=== PATIENT | female | born 1930 | race Asian ===

== ENCOUNTER 2017-11-12 16:28 | Inpatient (IN) | payer MEDICARE, OTHER ==
[~2017-11-12] VITALS: Ht 162.6 cm; Wt 62.2 kg
[~2017-11-12 16:28] MED LIST: ACET-868 PO; CALC1TAB99 PO; CEPH-570 PO; DEXT1CAP3 PO; FLUT1DIS3 IH; FURO40TA5 PO; LORA-258 PO; LOSA50TA21 PO; MEMA10TA PO; POTA20TA34 PO; TIOT18CA3 IH
--- NOTE | 2017-11-12 16:35 | NUR ---
[id number] FROM [facility]: SOB, LOW O2 SAT x 1 DAY. PATIENT IS A/OX 1, BREATHING EVEN, TACHYPNIC. ARRIVED ON 15L OXYGEN VIA NON REBREATHER MASK. PLACED INTO BED, MONITOR ATTACHED. SAFETY AND COMFORT MEASURES IN PLACE. MD AT BEDSIDE FOR EVAL.
[2017-11-12] MEDS ORDERED: IPRATROPIUM NEB FS 0.5 MG/2.5 ML AMPUL.NEB ONE (16:44)
[2017-11-12] MEDS ORDERED: ALBUTEROL FS 2.5 MG/3 ML VIAL.NEB ONE (16:44)
--- NOTE | 2017-11-12 16:44 | NUR ---
NEW IV STARTED ON LEFT HAND, 20G.
--- NOTE | 2017-11-12 16:45 | NUR ---
PT UNABLE TO PROVIDE URINE AT THIS TIME VERBAL ORDER DR GREENFIELD IN AND OUT CATH FOR NO URINE
[2017-11-12] MEDS ORDERED: methylPREDNISolone SOD SUCC 125 MG/2ML VIAL ONE (16:47)
--- NOTE | 2017-11-12 16:49 | NUR ---
OFFICE ELECTRICIAN AT BEDSIDE FOR BLOOD DRAW.
[2017-11-12 16:53] LABS: BASOPHILS # (AUTO) 0.1 /CMM (0.0-0.2); EOSINOPHILS % (AUTO) 5.1 % (0.0-6.0); HEMATOCRIT 42 % (33-45); HEMOGLOBIN 13.5 g/dL (11.5-14.8); LYMPHOCYTES # (AUTO) 1.7 /CMM (0.8-4.8); LYMPHOCYTES % (AUTO) 46.4 % (20.0-44.0); MEAN CORPUSCULAR HGB CONC 32 g/dl (31.0-36.0); MEAN CORPUSCULAR VOLUME 86 fL (82-100); MONOCYTES # (AUTO) 0.3 /CMM (0.1-1.30); MONOCYTES % (AUTO) 8.4 % (2.0-12.0); NEUTROPHILS # (AUTO) 1.5 /CMM (1.8-8.9); NEUTROPHILS % (AUTO) 38.1 % (43.0-81.0); PLATELET COUNT (AUTO) 193 /CMM (150-450); RDW COEFFICIENT OF VARIATION 14.6 (11.5-15.0); RED BLOOD CELL COUNT(AUTO) 4.93 MIL/uL (4.0-5.2); WHITE BLOOD COUNT (AUTO) 3.8 K/uL (4.3-11.0)
--- NOTE | 2017-11-12 16:56 | NUR ---
firestopper technician at bedside
[2017-11-12] MEDS ORDERED: IPRATROPIUM NEB FS 0.5 MG/2.5 ML AMPUL.NEB NEB ONE (17:00)
[2017-11-12] MEDS ORDERED: methylPREDNISolone SOD SUCC 125 MG/2ML VIAL IV ONE (17:00)
[2017-11-12] MEDS ORDERED: ALBUTEROL FS 2.5 MG/3 ML VIAL.NEB CONTNEB ONE (17:00)
[2017-11-12 17:02] LABS: CALCIUM, SERUM 8.6 mg/dL (8.5-10.1); CARBON DIOXIDE 32 mmol/L (21-32); CHLORIDE 110 mmol/L (98-107); CREATININE 0.8 mg/dL (0.6-1.3); GLUCOSE 85 mg/dL (74-106); POTASSIUM 4.5 mmol/L (3.5-5.1); SODIUM SERUM 145 mmol/L (136-145); UREA NITROGEN, BLOOD 19 mg/dL (7-18)
[2017-11-12] MEDS ORDERED: ASPIRIN 300 MG/SUPP.RECT RC ONE (17:04)
[2017-11-12 17:05] LABS: INR 1.61 (0.85-1.15)
[2017-11-12 17:08] LABS: ALANINE AMINOTRANSFERASE 28 U/L (12-78); ALBUMIN 2.7 g/dL (3.4-5.0); ALKALINE PHOSPHATASE 52 U/L (46-116); ASPARTATE AMINOTRANSFERASE 29 U/L (15-37); BILIRUBIN,DIRECT 0.2 mg/dL (0.0-0.2); BILIRUBIN,TOTAL 0.3 mg/dL (0.2-1.0); TOTAL PROTEIN, SERUM 7.2 g/dL (6.4-8.2)
[2017-11-12 17:10] LABS: TROPONIN I 0.024 ng/mL (0.00-0.056)
[2017-11-12] MEDS ORDERED: HEPARIN SODIUM, PORCINE 5000 UNITS/1 ML VIAL ONE (17:26)
[2017-11-12] MEDS ORDERED: HEPARIN-LOCK FLUSH PORCINE PF 100 UNITS/1 ML (10 ML)DISP.SYRIN IVF ONE (17:30)
--- NOTE | 2017-11-12 18:02 | NUR ---
CALLED [employer] SERVICE PLANNER WAS PAGED.
--- NOTE | 2017-11-12 18:11 | NUR ---
PAGED DR MCNAIR FOR CONSULT.
[2017-11-12 18:19] LABS: APPEARANCE,URINE SL CLOUDY (CLEAR); BILIRUBIN,URINE NEGATIVE (NEGATIVE); BLOOD, URINE 1+ Ery/uL (NEGATIVE); COLOR,URINE YELLOW (YELLOW); KETONES,URINE NEGATIVE (NEGATIVE); LEUKOCYTE ESTERASE ,URINE 1+ (NEGATIVE); NITRITE, URINE NEGATIVE (NEGATIVE); PH,URINE 5.5 (5.0-8.0); PROTEIN,URINE NEGATIVE (NEGATIVE); UGLUCOSE NEGATIVE (NEGATIVE); UROBILINOGEN,URINE 0.2 EU/dL (0.2)
[2017-11-12 18:32] LABS: BACTERIA,URINE 1+ /HPF (None Seen)
--- NOTE | 2017-11-12 18:49 | NUR ---
GAVE REPORT TO CALLIE HART TELE DR ARNOLD ADMITTING . ACUTE RESP FAILURE
[2017-11-12 19:00] VITALS: BP 67/35
[2017-11-12] MEDS ORDERED: LORAZEPAM 0.5 MG TABLET PO PRN (19:00)
[2017-11-12] MEDS: ASPIRIN 81 MG TAB.CHEW PO SCH (19:00)
[2017-11-12] MEDS ORDERED: MAGNESIUM HYDROXIDE 30 ML UDC PO PRN (19:00)
[2017-11-12] MEDS ORDERED: ZOLPIDEM TARTRATE 5 MG TABLET PO PRN (19:00)
[2017-11-12] MEDS ORDERED: HYDROCODONE/APAP 5/325MG 1 EACH TABLET PO PRN (19:00)
[2017-11-12] MEDS ORDERED: Z GUARD REMEDY 2 OZ OINT TP PRN (19:00)
[2017-11-12] MEDS ORDERED: MORPHINE SULFATE INJ 2 MG/ML DISP.SYRIN IV PRN (19:00)
[2017-11-12] MEDS ORDERED: MAG HYDROX/AL HYDROX/SIMETH 30 ML UDC PO PRN (19:00)
[2017-11-12] MEDS ORDERED: ONDANSETRON HCL/PF 4 MG/2 ML VIAL IVP PRN (19:00)
[2017-11-12] MEDS ORDERED: ACETAMINOPHEN 325 MG TABLET PO PRN (19:00)
--- NOTE | 2017-11-12 19:00 | NUR ---
ASSISTANT PROFESSOR OF MUSIC NOTE RECEIVED PATIENT AWAKE VIA [facility] FROM ER. NO RESPIRATORY DISTRESS AT THIS TIME. PATIENT NON-VERBAL. UNABLE TO MAKE NEEDS KNOWN. IV SITE INTACT, WITH NO REDNESS OR INFILTRATION NOTED. EDMON[facility] CATHETER IN PLACE, DRAINING CLEAR YELLOW URINE TO COLLECTION BAG. ALL BELONGINGS CHECKED AND ACCOUNTED FOR. BED LOCKED AND IN LOWEST POSITION. SIDE RAILS UP, CALL LIGHT WITHIN REACH. WILL CONTINUE TO MONITOR.
[2017-11-12] MEDS ORDERED: CEFTRIAXONE 1 G VIAL ONE (20:25)
[2017-11-12] MEDS: CEFTRIAXONE 1 G in IV D5W 50 ML IV SCH (20:33)
[2017-11-12] MEDS: ENOXAPARIN SODIUM 40 MG/0.4 ML DISP.SYRIN SQ SCH (20:36)
[2017-11-12] MEDS ORDERED: FLUTICASONE/SALMETEROL DISKUS IH SCH (21:00)
[2017-11-12] MEDS ORDERED: ATORVASTATIN 40 MG TABLET PO SCH (22:00)
[2017-11-13 03:47] LABS: BASOPHILS % (AUTO) 0.3 % (0.0-2.0); HEMATOCRIT 38 % (33-45); HEMOGLOBIN 12.4 g/dL (11.5-14.8); LYMPHOCYTES # (AUTO) 0.6 /CMM (0.8-4.8); LYMPHOCYTES % (AUTO) 16.7 % (20.0-44.0); MEAN CORPUSCULAR HGB CONC 32 g/dl (31.0-36.0); MEAN CORPUSCULAR VOLUME 86 fL (82-100); MONOCYTES % (AUTO) 0.8 % (2.0-12.0); NEUTROPHILS # (AUTO) 2.8 /CMM (1.8-8.9); NEUTROPHILS % (AUTO) 82.2 % (43.0-81.0); PLATELET COUNT (AUTO) 196 /CMM (150-450); RDW COEFFICIENT OF VARIATION 15.4 (11.5-15.0); RED BLOOD CELL COUNT(AUTO) 4.46 MIL/uL (4.0-5.2); WHITE BLOOD COUNT (AUTO) 3.4 K/uL (4.3-11.0)
[2017-11-13 04:05] LABS: CALCIUM, SERUM 9.2 mg/dL (8.5-10.1); CARBON DIOXIDE 31 mmol/L (21-32); CHLORIDE 108 mmol/L (98-107); CREATININE 1.6 mg/dL (0.6-1.3); GLUCOSE 152 mg/dL (74-106); MAGNESIUM 2.8 mg/dL (1.8-2.4); PHOSPHORUS 4.1 mg/dL (2.5-4.9); POTASSIUM 5.2 mmol/L (3.5-5.1); SODIUM SERUM 144 mmol/L (136-145); UREA NITROGEN, BLOOD 28 mg/dL (7-18)
[2017-11-13 04:09] LABS: IRON, SERUM 30 ug/dl (50-175); TOTAL IRON BINDING CAPACITY 218 ug/dl (250-450)
[2017-11-13 04:16] LABS: CHOLESTEROL 124 mg/dL (<200); HDL CHOLESTEROL 46 mg/dL (40-60); LDL 71 mg/dL (0-99); TRIGLYCERIDES 58 mg/dL (30-150)
--- NOTE | 2017-11-13 05:58 | NUR ---
SULFATE DRIER MACHINE OPERATOR NOTE PATIENT STABLE. FAMILY MEMBER AT BEDSIDE. NO DISTRESS NOTED. ALL NEEDS MET AND ATTENDED TO. WILL ENDORSE TO DAY SHIFT FOR MAGALI.
--- NOTE | 2017-11-13 07:10 | NUR ---
RN NOTES: PATIENT AROUSABLE TO TOUCH. PATIENT AOX1, NONVERBAL AT THE MOMENT. NO FACIAL GRIMACING NOTED. NONLABORED BREATHING NOTED ON 3 L. IV SITE ON LEFT WRIST PATENT AND INTACT. BED IN LOWEST LOCKED POSITION. CALL LIGHT WITHIN REACH. PATIENT SR WITH BB ON TELE MONITOR
[2017-11-13] MEDS: IV NS 0.9% 1,000 ML IV PRN ×2 (08:40→16:15)
[2017-11-13] MEDS ORDERED: FUROSEMIDE 40 MG TABLET PO SCH (09:00)
[2017-11-13] MEDS ORDERED: LOSARTAN POTASSIUM 50 MG TABLET PO SCH (09:00)
[2017-11-13] MEDS: ASPIRIN 81 MG TAB.CHEW PO SCH (09:04)
[2017-11-13] MEDS: IPRATROPIUM NEB FS 0.5 MG/2.5 ML AMPUL.NEB NEB SCH ×2 (09:42→14:32)
[2017-11-13] MEDS: FLUTICASONE/VILANTEROL 1 EACH BLST.W.DEV IH SCH (12:00)
--- NOTE | 2017-11-13 12:00 | NUR ---
RN NOTES: PATIENT UNABLE TO RETURN DEMONSTRATION WITH BREO INHALER. ATTEMPTED MULTIPLE TIMES. BENEFITS AND RISKS EXPLAINED TO PATIENT WELL SON. PATIENT ALSO REFUSING BREAKFAST. OFFERED MULTIPLE TIMES BY CROSSCUTTER AND MYSELF
[2017-11-13 16:00] VITALS: BP 103/60
--- NOTE | 2017-11-13 18:37 | NUR ---
RN NOTES: PATIENT RESTING IN BED. AROUSABLE TO TOUCH AND NAME. PATIENT VERBAL, SLOVENIAN SPEAKING. IV SITE ON RIGHT HAND GAUGE 22 PATENT AND INTACT WITH FLUIDS RUNNING PER ORDERS. PATIENT KEPT CLEAN THROUGHOUT SHIFT. TURNED AND REPOSITIONED EVERY 2 HOURS. PATIENT TOLERATING PUREED DIET WELL. CONSUMED ABOUT 25% WELL 30% OF DINNER. NO NAUSEA AND NO VOMITING. MR TREJO SPOKE TO HOSPICE AGENCY. AWAITING VERIFICATION FROM HOSPICE AGENCY. NO FACIAL GRIMACING THROUGHOUT SHIFT. PATIENT SUCTIONED NEEDED. NO SIGNS OF ASPIRATION. WILL ENDORCE TO NEXT SHIFT
--- NOTE | 2017-11-13 19:30 | NUR ---
MS RN NOTE RECEIVED PATIENT ASLEEP IN BED. ABLE TO AROUSE BY NAME. RECEIVING 2L OXYGEN VIA NASAL CANNULA. NO RESPIRATORY DISTRESS NOTED. NO S/S OF PAIN OR DISCOMFORT NOTED. IV SITE INTACT, WITH FLUIDS RUNNING ORDERED. EDMON[facility] CATHETER IN PLACE, DRAINING DARK YELLOW URINE INTO COLLECTION BAG. BED LOCKED AND IN LOWEST POSITION. SIDE RAILS UP, CALL LIGHT WITHIN REACH. WILL CONTINUE TO MONITOR.
[2017-11-13 20:15] VITALS: BP 90/51
[2017-11-13] MEDS: CEFTRIAXONE 1 G in IV D5W 50 ML IV SCH (21:13)
[2017-11-13] MEDS: ENOXAPARIN SODIUM 40 MG/0.4 ML DISP.SYRIN SQ SCH (21:16)
[2017-11-13 22:00] VITALS: BP 90/51
[2017-11-14] MEDS: IPRATROPIUM NEB FS 0.5 MG/2.5 ML AMPUL.NEB NEB SCH ×3 (00:13→14:56)
[2017-11-14 06:36] LABS: BASOPHILS # (AUTO) 0.1 /CMM (0.0-0.2); BASOPHILS % (AUTO) 1.1 % (0.0-2.0); EOSINOPHILS % (AUTO) 0.6 % (0.0-6.0); HEMATOCRIT 36 % (33-45); HEMOGLOBIN 11.7 g/dL (11.5-14.8); LYMPHOCYTES # (AUTO) 1.9 /CMM (0.8-4.8); LYMPHOCYTES % (AUTO) 36.7 % (20.0-44.0); MEAN CORPUSCULAR HGB CONC 33 g/dl (31.0-36.0); MEAN CORPUSCULAR VOLUME 89 fL (82-100); MONOCYTES # (AUTO) 0.3 /CMM (0.1-1.30); MONOCYTES % (AUTO) 6.6 % (2.0-12.0); NEUTROPHILS # (AUTO) 2.8 /CMM (1.8-8.9); PLATELET COUNT (AUTO) 156 /CMM (150-450); RDW COEFFICIENT OF VARIATION 15.6 (11.5-15.0); RED BLOOD CELL COUNT(AUTO) 4.03 MIL/uL (4.0-5.2); WHITE BLOOD COUNT (AUTO) 5.1 K/uL (4.3-11.0)
--- NOTE | 2017-11-14 06:51 | NUR ---
ms rn note Patient stable. All needs met and attended to. Will endorse to day shift.
[2017-11-14 07:28] LABS: CALCIUM, SERUM 8.6 mg/dL (8.5-10.1); CARBON DIOXIDE 30 mmol/L (21-32); CHLORIDE 110 mmol/L (98-107); CREATININE 0.9 mg/dL (0.6-1.3); GLUCOSE 88 mg/dL (74-106); PHOSPHORUS 3.1 mg/dL (2.5-4.9); POTASSIUM 4.5 mmol/L (3.5-5.1); SODIUM SERUM 145 mmol/L (136-145); UREA NITROGEN, BLOOD 32 mg/dL (7-18)
[2017-11-14 08:00] VITALS: BP 119/44
--- NOTE | 2017-11-14 08:00 | NUR ---
MS RN OPENING NOTES. RECEIVED PATIENT IN BED, AWAKE, ALERT X1 , EASILY AROUSABLE, RESPIRATIONS EVEN AND UNLABORED, NO FACIAL GRIMACING NOTED , NO DISCOMFORT NOTED. IV TO LEFT WRIST 20GUAGE INTACT AND PATENT, NO REDNESS NO INFILTRATION NOTES, IVF RUNNING PROPERLY. EDMONDS CATHETER INTACT AND DRAINING WELL. SAFETY MEASURES WITHIN REACH . CALL LIGHT KEPT WITHIN REACH WILL CONTINUE TO MONITOR.
[2017-11-14] MEDS: ASPIRIN 81 MG TAB.CHEW PO SCH (09:04)
[2017-11-14] MEDS: FLUTICASONE/VILANTEROL 1 EACH BLST.W.DEV IH SCH (09:10)
[2017-11-14] MEDS: IV NS 0.9% 1,000 ML IV PRN ×2 (14:44→16:34)
[2017-11-14 16:00] VITALS: BP 110/57
--- NOTE | 2017-11-14 19:10 | NUR ---
MS RN OPENING NOTE RECEIVED PATIENT IN BED, SLEEPING, AROUSED EASILY WITH VERBAL STIMULI, DISORIENTED. RESPIRATIONS EVEN AND UNLABORED, IN NO APPARENT DISTRESS OR DISCOMFORT AT THIS TIME. PATIENT ON 2L O2 VIA NC TOLERATING WELL. PATIENT WITH EDMONDS CATHETER, INTACT DRAINING WELL CLEAR AND YELLOW URINE. L WRIST IV SITE 22G WITH FLUIDS RUNNING AT 75ML/HR. NO SIGNS OF INFILTRATION OR INFECTION. PATIENT KEPT CLEAN AND COMFORTABLE. SAFETY MEASURES IN PLACE, BED IN LOW LOCKED POSITION, SIDE RAILS UP X2, CALL LIGHT WITHIN EASY REACH, WILL CONTINUE TO MONITOR.
--- NOTE | 2017-11-14 19:26 | NUR ---
RN OPENING NOTES. PATIENT IN BED, AWAKE, ALERT X1 , EASILY AROUSABLE, RESPIRATIONS EVEN AND UNLABORED, NO FACIAL GRIMACING NOTED , NO DISCOMFORT NOTED. IV TO LEFT WRIST 22GUAGE INTACT AND PATENT, NO REDNESS NO INFILTRATION NOTES, IVF RUNNING PROPERLY ORDERED. EDMONDS CATHETER INTACT AND DRAINING WELL. SAFETY MEASURES WITHIN REACH . CALL LIGHT KEPT WITHIN REACH. Addendum: 11/14/17 at 1931 by GHADA BROOKE RN MS CLOSING NOTES
[2017-11-14 20:00] VITALS: BP 112/65
[2017-11-14] MEDS: CEFTRIAXONE 1 G in IV D5W 50 ML IV SCH (20:38)
[2017-11-14] MEDS: ENOXAPARIN SODIUM 40 MG/0.4 ML DISP.SYRIN SQ SCH (20:42)
[2017-11-15] MEDS: IPRATROPIUM NEB FS 0.5 MG/2.5 ML AMPUL.NEB NEB SCH ×4 (00:08→23:04)
[2017-11-15 06:45] LABS: BASOPHILS % (AUTO) 0.8 % (0.0-2.0); EOSINOPHILS % (AUTO) 4.4 % (0.0-6.0); HEMATOCRIT 34 % (33-45); HEMOGLOBIN 11.2 g/dL (11.5-14.8); LYMPHOCYTES % (AUTO) 55.9 % (20.0-44.0); MEAN CORPUSCULAR HGB CONC 33 g/dl (31.0-36.0); MEAN CORPUSCULAR VOLUME 89 fL (82-100); MONOCYTES # (AUTO) 0.3 /CMM (0.1-1.30); MONOCYTES % (AUTO) 8.7 % (2.0-12.0); NEUTROPHILS # (AUTO) 1.1 /CMM (1.8-8.9); NEUTROPHILS % (AUTO) 30.2 % (43.0-81.0); PLATELET COUNT (AUTO) 139 /CMM (150-450); RDW COEFFICIENT OF VARIATION 15.4 (11.5-15.0); RED BLOOD CELL COUNT(AUTO) 3.75 MIL/uL (4.0-5.2); WHITE BLOOD COUNT (AUTO) 3.6 K/uL (4.3-11.0)
[2017-11-15 06:47] LABS: ALANINE AMINOTRANSFERASE 23 U/L (12-78); ALBUMIN 2.3 g/dL (3.4-5.0); ALKALINE PHOSPHATASE 38 U/L (46-116); ASPARTATE AMINOTRANSFERASE 21 U/L (15-37); BILIRUBIN,TOTAL 0.4 mg/dL (0.2-1.0); CALCIUM, SERUM 8.1 mg/dL (8.5-10.1); CARBON DIOXIDE 29 mmol/L (21-32); CHLORIDE 110 mmol/L (98-107); CREATININE 0.7 mg/dL (0.6-1.3); GLUCOSE 85 mg/dL (74-106); MAGNESIUM 1.8 mg/dL (1.8-2.4); POTASSIUM 3.9 mmol/L (3.5-5.1); SODIUM SERUM 145 mmol/L (136-145); TOTAL PROTEIN, SERUM 5.8 g/dL (6.4-8.2); UREA NITROGEN, BLOOD 20 mg/dL (7-18)
--- NOTE | 2017-11-15 07:30 | NUR ---
MS RN OPENING NOTES. RECEIVED PATIENT IN BED, AWAKE, ALERT X1 , EASILY AROUSABLE, RESPIRATIONS EVEN AND UNLABORED, NO FACIAL GRIMACING NOTED , NO DISCOMFORT NOTED. IV TO LEFT WRIST 22GUAGE INTACT AND PATENT, NO REDNESS NO INFILTRATION NOTES, IVF RUNNING PROPERLY. EDMONDS CATHETER INTACT AND DRAINING WELL. SAFETY MEASURES WITHIN REACH . CALL LIGHT KEPT WITHIN REACH WILL CONTINUE TO MONITOR.
--- NOTE | 2017-11-15 07:50 | NUR ---
MS RN CLOSING NOTE PATIENT IN BED, SLEEPING, AROUSED EASILY WITH VERBAL STIMULI, DISORIENTED. RESPIRATIONS EVEN AND UNLABORED, IN NO APPARENT DISTRESS OR DISCOMFORT AT THIS TIME. PATIENT ON 2L O2 VIA NC TOLERATING WELL. PATIENT WITH EDMONDS CATHETER, INTACT DRAINING WELL 400 CLEAR AND YELLOW URINE OUTPUT. L WRIST IV SITE 22G WITH FLUIDS RUNNING AT 75ML/HR. NO SIGNS OF INFILTRATION OR INFECTION. PATIENT KEPT CLEAN AND COMFORTABLE. SAFETY MEASURES IN PLACE, BED IN LOW LOCKED POSITION, SIDE RAILS UP X2, CALL LIGHT WITHIN EASY REACH, WILL ENDORSE TO AM NURSE FOR MAGALI.
[2017-11-15 08:00] VITALS: BP 113/52
[2017-11-15] MEDS: ASPIRIN 81 MG TAB.CHEW PO SCH ×2 (08:54→09:00)
[2017-11-15] MEDS: FLUTICASONE/VILANTEROL 1 EACH BLST.W.DEV IH SCH ×2 (08:54→09:00)
[2017-11-15] MEDS ORDERED: K PHOS NEUTRAL 250 MG TABLET PO ONE (15:30)
[2017-11-15 16:00] VITALS: BP 121/72
--- NOTE | 2017-11-15 16:10 | NUR ---
RN MS NOTES K PHOS PILL FORM NOT ADMINISTERED PHARM AWARE OF PATIENT IS CRUSHED MEDS, PER PHARMACY RETURN PILL FORM WILL CHANGE TO POWDER, MEDICATIONS RETURNED,WILL CONTINUE TO FOLLOW UP
[2017-11-15] MEDS: NEUTRA PHOS 1 POWD.PACKET PO ONE ×2 (16:30→17:49)
--- NOTE | 2017-11-15 18:50 | NUR ---
CALLED AND SPOKE TO REGARDING PATIENT REFUSAL OF PO PHOS, WITH NEW ORDERS FOR IV SODIUM PHOS, MADE AWARE OF LABS.
[2017-11-15] MEDS ORDERED: Sodium Phosphate 5 MMOL in IV D5W 100 ML IV ONE (19:00)
--- NOTE | 2017-11-15 19:29 | NUR ---
MS RN CLOSING NOTES. PATIENT IN BED, AWAKE, ALERT X1 , EASILY AROUSABLE, RESPIRATIONS EVEN AND UNLABORED, NO FACIAL GRIMACING NOTED , NO DISCOMFORT NOTED. IV TO LEFT WRIST 22GUAGE INTACT AND PATENT, NO REDNESS NO INFILTRATION NOTES, IVF RUNNING PROPERLY. EDMONDS CATHETER INTACT AND DRAINING WELL. SAFETY MEASURES WITHIN REACH . CALL LIGHT KEPT WITHIN REACH WILL CONTINUE TO MONITOR.
--- NOTE | 2017-11-15 19:30 | NUR ---
RN NOTES RECEIVED PATIENT IN BED AWAKE, OA X 1, RESPONSIVE TO VOICE AND TOUCH. NO ACUTE DISTRESS NOTED. NO SIGNS OF PAIN NOTED. IV SITE PATENT, INTACT; IVF INFUSING ORDERED. EDMONDS CATH PATENT, INTACT; DRAINING CLEAR YELLOW URINE. SAFETY REMINDERS GIVEN. ON LOW BED WITH BILATERAL UPPER SIDE RAILS UP. CALL [place] WITHIN EASY REACH. WILL CONTINUE TO MONITOR.
[2017-11-15] MEDS: IV NS 0.9% 1,000 ML IV PRN (19:55)
[2017-11-15 20:00] VITALS: BP 120/71
[2017-11-15] MEDS: CEFTRIAXONE 1 G in IV D5W 50 ML IV SCH (21:43)
[2017-11-15] MEDS: ENOXAPARIN SODIUM 40 MG/0.4 ML DISP.SYRIN SQ SCH (21:44)
--- NOTE | 2017-11-16 06:00 | NUR ---
RN NOTES PATIENT ASLEEP, EASILY AROUSABLE. RESPIRATIONS EVEN. NO SIGNS OF PAIN NOTED. NEEDS ATTENDED. SAFETY PRECAUTIONS AND COMFORT MEASURES IN PLACE. WILL GIVE REPORT TO DAY SHIFT FOR CONTINUITY OF CARE.
[2017-11-16] MEDS: IPRATROPIUM NEB FS 0.5 MG/2.5 ML AMPUL.NEB NEB SCH ×2 (07:15→15:20)
--- NOTE | 2017-11-16 07:47 | NUR ---
MS RN: INITIAL NOTE RECEIVED PT A/OX1. ON MS. EDMONDS CATH IN PLACE AND DRAINING. BEDREST. TURNED AND REPOSITIONED Q2 HOURS. SKIN INTACT. ON CARDIAC DIET. L WRIST #22 RUNNING NS AT 75ML/HR. SITE CLEAR AND PATENT. NO REDNESS OR BLEEDING NOTED. NO DISTRESS NOTED. NO SOB NOTED. ON 2L NC SAT 98%. NO PAIN NOTED. RESTING COMFORTABLY IN BED. CALL LIGHT WITHIN REACH.
[2017-11-16 08:50] VITALS: BP 134/74
[2017-11-16] MEDS: ASPIRIN 81 MG TAB.CHEW PO SCH (09:00)
[2017-11-16] MEDS: FLUTICASONE/VILANTEROL 1 EACH BLST.W.DEV IH SCH (09:26)
--- NOTE | 2017-11-16 09:29 | NUR ---
PT REFUSED ASPIRIN. MEDICATION RETURNED. PT A/OX1. CONFUSED. EXPLAINED RISKS AND BENEFITS IN AZERI. PT SPEAKS ONLY AZERI.
[2017-11-16] MEDS ORDERED: ASPI-1169 PO (10:39)
[2017-11-16] MEDS ORDERED: CEFT1FRO2 IV (10:39)
[2017-11-16] MEDS ORDERED: MORPHINE SULFATE INJ 4 MG/ML DISP.SYRIN IV PRN (15:30)
[2017-11-16 15:59] VITALS: BP 118/78
--- NOTE | 2017-11-16 16:14 | NUR ---
MS RN: DISCHARGE NOTE PT D/C BACK TO [facility]. NO DISTRESS NOTED. NO SOB NOTED. PAIN CONTROLLED WITH PAIN MEDS. BP 124/65, PULSE 76, RR 22, O2 95%, TEMP 97.6. A/OX1. REFUSED MORNING MEDICATIONS. PT DID NOT EAT WELL ALL DAY. GENERAL FARM HAND GRAZYNA AWARE. EDMONDS CATH IN PLACE AND DRAINING. OUT PUT 700ML. SENT TO [facility] WITH [facility]. SENT WITH L WRIST #22 IV SL DUE TO IV ATB TO BE CONTINUED AT [facility]. REPORT GIVEN TO [facility]. AWARE THAT PT CAN GET TACHY AT 120 BPM WHEN ANXIOUS. DNR. ALL DISCHARGE INFORMATION SIGNED BY TWO RNS DUE TO PT INABILITY TO SIGN. ALL VALUABLES ACCOUNTED FOR. NO VALUABLES NOTED AT BEDSIDE OR DOCUMENTED. ALL INFORMATION PROVIDED TO TWO EMT. LEFT VIA AMBULANCE WITH TWO EMT. SON ULMA AWARE.
[2017-11-16] MEDS ORDERED: NEUTRA PHOS 1 POWD.PACKET PO ONE (16:30)
== END 2017-11-16 16:17 | DRG 189 ==
LOC: ER 16:30 → TELE 18:59 → MED 11-13 11:32
PROVIDERS: ADMIT Internal Medicine; ATTEND Internal Medicine
DX: J96.01 Acute respiratory failure with hypoxia (principal); I21.A1 Myocardial infarction type 2; N17.0 Acute kidney failure with tubular necrosis; G93.41 Metabolic encephalopathy; E44.0 Moderate protein-calorie malnutrition; C85.90 Non-Hodgkin lymphoma, unspecified, unspecified site; D68.59 Other primary thrombophilia; J44.1 Chronic obstructive pulmonary disease with (acute) exacerbation; N39.0 Urinary tract infection, site not specified; E87.5 Hyperkalemia; R13.10 Dysphagia, unspecified; I48.2 Chronic atrial fibrillation; E86.0 Dehydration; Z66 Do not resuscitate; B96.20 Unspecified Escherichia coli [E. coli] as the cause of diseases classified elsewhere; F03.90 Unspecified dementia, unspecified severity, without behavioral disturbance, psychotic disturbance, mood disturbance, and anxiety; F32.9 Major depressive disorder, single episode, unspecified; I10 Essential (primary) hypertension; K21.9 Gastro-esophageal reflux disease without esophagitis; Z86.73 Personal history of transient ischemic attack (TIA), and cerebral infarction without residual deficits; Z68.23 Body mass index [BMI] 23.0-23.9, adult
CPT/HCPCS: 36415; 71045-TC; 80048-TC; 80053-TC; 80061-TC; 80076-TC; 81000-TC; 82746; 82962-TC; 83540-TC; 83605-TC; 83735-TC; 84100-TC; 84443-TC; 84484-TC; 85025-TC; 85730-TC; 87040-TC; 87081-TC; 87086-TC; 87186-TC; 93307-TC; 94799-TC; A4606; A9563; J0696; J1642; J1644; J1650; J2270; J2930; J7030; J7060; Z7610

== ENCOUNTER 2018-05-21 20:52 | Emergency (ER) | payer MEDICARE, OTHER ==
[~2018-05-21] VITALS: Ht 160 cm; Wt 58.1 kg
[~2018-05-21 20:52] MED LIST changes: +ASPI-1169 PO; +CEFT1FRO2 IV; -CEPH-570 PO; -FURO40TA5 PO; -POTA20TA34 PO
--- NOTE | 2018-05-21 21:09 | NUR ---
[facility]IB [facility] C/O TACHYCARDIA, AND TACHYPNEA. PT AA/OX1 NORMAL PER AMBULANCE REPORT. HX OF DEMENTIA. NO S/S SOB. SKIN PINK, WARM, DRY. PEDAL PULSES PRESENT. PULSE TACHYCARDIC AT A RATE OF 111 AND REGULAR RESPIRATORY RATE OF 20 REGULAR. NAD. VSS. STABLE CONDITION. WILL CONTINUE TO MONITOR.
[2018-05-21] MEDS ORDERED: IV NS 0.9% 1,000 ML BAG IV ONE (21:30)
[2018-05-21] MEDS ORDERED: DILTIAZEM HCL IV 125 MG in IV D5W 100 ML IV PRN (21:30)
[2018-05-21] MEDS ORDERED: Magnesium 1GM/D5W 100ML PREMIX PIGGYBACK IV ONE (21:30)
[2018-05-21 21:36] LABS: BASOPHILS # (AUTO) 0.1 /CMM (0.0-0.2); BASOPHILS % (AUTO) 1.6 % (0.0-2.0); EOSINOPHILS % (AUTO) 1.6 % (0.0-6.0); HEMATOCRIT 38 % (33-45); HEMOGLOBIN 12.3 g/dL (11.5-14.8); LYMPHOCYTES # (AUTO) 1.6 /CMM (0.8-4.8); LYMPHOCYTES % (AUTO) 47.9 % (20.0-44.0); MEAN CORPUSCULAR HGB CONC 32 g/dl (31.0-36.0); MEAN CORPUSCULAR VOLUME 88 fL (82-100); MONOCYTES # (AUTO) 0.3 /CMM (0.1-1.30); MONOCYTES % (AUTO) 8.9 % (2.0-12.0); NEUTROPHILS # (AUTO) 1.4 /CMM (1.8-8.9); PLATELET COUNT (AUTO) 180 /CMM (150-450); RDW COEFFICIENT OF VARIATION 13.6 (11.5-15.0); RED BLOOD CELL COUNT(AUTO) 4.34 MIL/uL (4.0-5.2); WHITE BLOOD COUNT (AUTO) 3.5 K/uL (4.3-11.0)
[2018-05-21 21:45] LABS: CALCIUM, SERUM 9.4 mg/dL (8.5-10.1); CARBON DIOXIDE 37 mmol/L (21-32); CHLORIDE 108 mmol/L (98-107); CREATININE 0.8 mg/dL (0.6-1.3); GLUCOSE 110 mg/dL (74-106); POTASSIUM 4.4 mmol/L (3.5-5.1); SODIUM SERUM 145 mmol/L (136-145); UREA NITROGEN, BLOOD 42 mg/dL (7-18)
[2018-05-21 21:50] LABS: INR 0.94 (0.85-1.15)
[2018-05-21 21:55] LABS: TROPONIN I 0.026 ng/mL (0.00-0.056)
--- NOTE | 2018-05-21 22:04 | NUR ---
PAGED DR. CASSI LABOY
--- NOTE | 2018-05-21 22:25 | NUR ---
RPatient is resting comfortably in bed with eyes closed. Easily aroused. VSS
--- NOTE | 2018-05-21 23:45 | NUR ---
REPORT GIVEN TO [facility].
--- NOTE | 2018-05-22 00:02 | NUR ---
PT TRANSPORTED VIA AMBULANCE STABLE CONDITION. VSS. NAD. IV removed. Catheter intact and site benign. Pressure and 4x4 applied to site. No bleeding noted.
[2018-05-22 00:04] VITALS: BP 118/70
== END 2018-05-22 00:05 | disposition home or self-care (01) ==
LOC: ER 21:00
DX: I48.0 Paroxysmal atrial fibrillation (principal); G93.40 Encephalopathy, unspecified; J44.9 Chronic obstructive pulmonary disease, unspecified; I48.91 Unspecified atrial fibrillation; I10 Essential (primary) hypertension; C85.90 Non-Hodgkin lymphoma, unspecified, unspecified site; F03.90 Unspecified dementia, unspecified severity, without behavioral disturbance, psychotic disturbance, mood disturbance, and anxiety; Z98.890 Other specified postprocedural states; Z79.82 Long term (current) use of aspirin
CPT/HCPCS: 36415; 71045; 80048; 84484; 85025; 85730; 93005; 99285; A4606; J7030; Z7610